=== PATIENT | male | born 1960 | race Caucasian/White ===

== ENCOUNTER 2016-11-02 07:43 | Day surgery (SDC) | payer OTHER ==
[2016-10-31 12:55] VITALS: BMI 22.5
[2016-11-02] MEDS ORDERED: PROPOFOL 20 ML ONE ×2 (07:47)
[2016-11-02 08:01] VITALS: TEMP 97.9
[2016-11-02 09:52] VITALS: BP 106/66; PULSE 62
== END 2016-11-02 10:20 | disposition home or self-care (01) ==
LOC: FASU-ENDO 07:43
PROVIDERS: ATTEND Internal Medicine Gastroenterology
PROC: 0DJD8ZZ Inspection of Lower Intestinal Tract, Via Natural or Artificial Opening Endoscopic (ICD-10-PCS; principal; 2016-11-02 08:57)
DX: Z12.11 Encounter for screening for malignant neoplasm of colon (principal); Z83.71 Family history of colonic polyps